=== PATIENT | female | born 1970 | race Caucasian/White ===

== ENCOUNTER 2017-07-31 19:27 | Emergency (ER) | payer BC ==
[~2017-07-31] VITALS: Ht 172.7 cm; Wt 138.8 kg
[~2017-07-31 19:27] MED LIST: ADVAIR 100/501 DISK IH; ADVAIR 500/501 DISK IH; ALBUTEROL INHALER; ALBUTEROL SULF8.5 GM IH; AMOXICILLIN875 MG PO; CIPRO500 MG PO; KEFLEX500 MG PO; LEXAPRO10 MG PO; LORTAB 5-325 M1 EACH PO; Levaquin PO; MOBIC7.5 MG PO; MOTRIN600 MG PO; NAPROSYN500 MG PO; OMEPRAZOLE20 MG PO; PERCOCET 5/31 TABLET PO; PREDNISONE20 MG PO; PROVENTIL HFA6.7 GM IH; TESSALON PERLE100 MG PO; ULTRAM50 MG PO; VENTOLIN17 GM IH; ZITHROMAX Z-PA250 MG PO; ZOFRAN4 MG PO; ZYRTEC-D1 TABLE1 PO
[2017-07-31 20:39] LABS: HEMATOCRIT 40.2 % (36.0-46.0); HEMOGLOBIN 13.2 G/DL (11.9-15.5); MCH 29.6 PG (29.0-34.0); MCHC 32.8 G/DL (30.0-36.0); MCV 90.1 FL (83-99); PLATELET COUNT 272 K/uL (156-360); RBC DIS.WIDTH-CV 13.9 % (11.8-14.6); RBC DIS.WIDTH-SD 45.7 % (39-53); RED BLOOD COUNT 4.46 M/uL (3.80-5.20); WHITE BLOOD COUNT 8.2 K/uL (4.1-10.2)
[2017-07-31 20:49] LABS: CHLORIDE 104 mEq/L (99-109); POTASSIUM 4.5 mEq/L (3.7-5.4); SODIUM 136 mEq/L (136-147)
[2017-07-31 20:51] LABS: GLUCOSE 102 mg/dL (70-99)
[2017-07-31 20:54] LABS: CREATININE 1.3 mg/dL (0.6-1.3); GFR ESTIMATE (CALCULATED) 47 mL/min/
[2017-07-31 20:55] LABS: UREA NITROGEN (BUN) 16 mg/dL (9-23)
[2017-07-31 21:00] LABS: TROP-I INTERPRETATION NEGATIVE; TROPONIN-I < 0.01 ng/mL (0.0-0.30)
[2017-08-01 01:27] VITALS: BP 116/78
[2017-08-01] MEDS ORDERED: TAMIFLU75 MG PO (01:30)
[2017-08-01] MEDS ORDERED: PREDNISONE20 MG PO (01:30)
[2017-08-01] MEDS ORDERED: MOTRIN800 MG PO (01:30)
[2017-08-01] MEDS ORDERED: ZITHROMAX250 MG PO (01:32)
== END 2017-08-01 01:42 | disposition home or self-care (01) ==
LOC: EME 19:27
DX: J11.1 Influenza due to unidentified influenza virus with other respiratory manifestations (principal); J45.901 Unspecified asthma with (acute) exacerbation; F41.9 Anxiety disorder, unspecified; F32.9 Major depressive disorder, single episode, unspecified; Z90.49 Acquired absence of other specified parts of digestive tract
CPT/HCPCS: 71020; 80048; 84484; 85027; 93005; 94640; 99281; 99284; J7512

== ENCOUNTER 2017-09-17 18:29 | Emergency (ER) | payer BC ==
[~2017-09-17] VITALS: Ht 172.7 cm; Wt 135.4 kg
[~2017-09-17 18:29] MED LIST changes: +MOTRIN800 MG PO; +TAMIFLU75 MG PO; +ZITHROMAX250 MG PO
[2017-09-17 19:22] LABS: HEMATOCRIT 40.3 % (36.0-46.0); HEMOGLOBIN 13.2 G/DL (11.9-15.5); MCH 29.7 PG (29.0-34.0); MCHC 32.8 G/DL (30.0-36.0); MCV 90.8 FL (83-99); PLATELET COUNT 329 K/uL (156-360); RBC DIS.WIDTH-CV 13.4 % (11.8-14.6); RBC DIS.WIDTH-SD 44.6 % (39-53); RED BLOOD COUNT 4.44 M/uL (3.80-5.20); WHITE BLOOD COUNT 7.4 K/uL (4.1-10.2)
[2017-09-17 19:31] LABS: ALBUMIN 4.3 g/dL (3.2-4.8); CHLORIDE 106 mEq/L (99-109); POTASSIUM 4.3 mEq/L (3.7-5.4); SODIUM 140 mEq/L (136-147)
[2017-09-17 19:33] LABS: GLUCOSE 96 mg/dL (70-99); TOTAL PROTEIN 7.5 g/dL (6.4-8.3)
[2017-09-17 19:35] LABS: TOTAL BILIRUBIN 1.7 mg/dL (0.0-1.0)
[2017-09-17 19:37] LABS: ALKALINE PHOSPHATASE 100 IU/L (3-129); CREATININE 1.2 mg/dL (0.6-1.3); GFR ESTIMATE (CALCULATED) 51 mL/min/
[2017-09-17 19:38] LABS: UREA NITROGEN (BUN) 17 mg/dL (9-23)
[2017-09-17 19:40] LABS: ALT (GPT) 11 IU/L (3-49); AST (GOT) 17 IU/L (2-34)
[2017-09-17 19:48] LABS: QUANTITATIVE HCG < 4.0 MIU/ML
[2017-09-17 19:56] LABS: APPEARANCE SL.HAZY ((CLEAR)); BILIRUBIN NEGATIVE; BLOOD NEGATIVE; COLOR YELLOW ((YELLOW)); GLUCOSE (STRIP) NEGATIVE; KETONES NEGATIVE; LEUKOCYTES NEGATIVE; NITRITE NEGATIVE; PROTEIN (STRIP) 30; SPECIFIC GRAVITY 1.029 (1.000-1.030); UROBILINOGEN 0.2 MG/DL (0.2-1.0)
[2017-09-17 20:01] LABS: BACTERIA NONE SEEN /HPF; EPITHELIAL CELLS 1+ /HPF; MUCUS TRACE /LPF; RED BLOOD CELLS 0-5 /HPF (0-5); UCUL ADDED? NO; WHITE BLOOD CELLS 0-5 /HPF (0-5)
[2017-09-17 22:50] LABS: DIRECT BILIRUBIN 0.5 mg/dL (0.0-0.3)
[2017-09-17 22:51] LABS: LIPASE 27 U/L (1.0-51.0)
[2017-09-17] MEDS ORDERED: REGLAN10 MG PO (23:29)
[2017-09-17] MEDS ORDERED: BENTYL20 MG PO (23:29)
[2017-09-17] MEDS ORDERED: ZANTAC300 MG PO (23:31)
[2017-09-17 23:46] VITALS: BP 128/82
== END 2017-09-17 23:47 | disposition home or self-care (01) ==
LOC: EME 18:29 → EXP 18:29
DX: R10.10 Upper abdominal pain, unspecified (principal); R68.81 Early satiety; R11.0 Nausea; K44.9 Diaphragmatic hernia without obstruction or gangrene; Z98.84 Bariatric surgery status; Z90.49 Acquired absence of other specified parts of digestive tract; Z90.5 Acquired absence of kidney; Z98.51 Tubal ligation status; J45.909 Unspecified asthma, uncomplicated
CPT/HCPCS: 74176; 80053; 81003; 82248; 83690; 84702; 85027; 93005; 99281; 99284; J0500

== ENCOUNTER 2017-12-17 15:41 | Emergency (ER) | payer OTHER, BC ==
[~2017-12-17] VITALS: Ht 172.7 cm; Wt 81.8 kg
[~2017-12-17 15:41] MED LIST changes: +BENTYL20 MG PO; +REGLAN10 MG PO; +ZANTAC300 MG PO
[2017-12-17] MEDS ORDERED: FLEXERIL10 MG PO (17:20)
[2017-12-17] MEDS ORDERED: NAPROSYN500 MG PO (17:20)
[2017-12-17 17:43] VITALS: BP 121/77
== END 2017-12-17 17:44 | disposition home or self-care (01) ==
LOC: EME 15:41
DX: M62.838 Other muscle spasm (principal); V49.40XA Driver injured in collision with unspecified motor vehicles in traffic accident, initial encounter; Y92.410 Unspecified street and highway as the place of occurrence of the external cause; J45.909 Unspecified asthma, uncomplicated; F41.9 Anxiety disorder, unspecified; F32.9 Major depressive disorder, single episode, unspecified; F31.9 Bipolar disorder, unspecified; Z90.49 Acquired absence of other specified parts of digestive tract; Z90.5 Acquired absence of kidney; Z98.84 Bariatric surgery status
CPT/HCPCS: 72040; 73030; 99281; 99283

== ENCOUNTER 2018-02-22 22:39 | Emergency (ER) | payer BC ==
[~2018-02-22] VITALS: Ht 172.7 cm; Wt 139.2 kg
[~2018-02-22 22:39] MED LIST changes: +FLEXERIL10 MG PO
[2018-02-22 23:23] LABS: HEMATOCRIT 38.9 % (36.0-46.0); HEMOGLOBIN 12.7 G/DL (11.9-15.5); MCH 29.3 PG (29.0-34.0); MCHC 32.6 G/DL (30.0-36.0); MCV 89.8 FL (83-99); PLATELET COUNT 319 K/uL (156-360); RBC DIS.WIDTH-CV 14.5 % (11.8-14.6); RBC DIS.WIDTH-SD 47.9 % (39-53); RED BLOOD COUNT 4.33 M/uL (3.80-5.20); WHITE BLOOD COUNT 7.9 K/uL (4.1-10.2)
[2018-02-22 23:39] LABS: CHLORIDE 107 mEq/L (99-109); POTASSIUM 4.1 mEq/L (3.7-5.4); SODIUM 141 mEq/L (136-147)
[2018-02-22 23:41] LABS: GLUCOSE 101 mg/dL (70-99)
[2018-02-22 23:45] LABS: CREATININE 1.3 mg/dL (0.6-1.3); GFR ESTIMATE (CALCULATED) 47 mL/min/
[2018-02-22 23:46] LABS: UREA NITROGEN (BUN) 21 mg/dL (9-23)
[2018-02-23] MEDS ORDERED: PREDNISONE20 MG PO (01:53)
[2018-02-23 02:05] VITALS: BP 110/82
== END 2018-02-23 02:05 | disposition home or self-care (01) ==
LOC: EME 22:39
DX: J45.901 Unspecified asthma with (acute) exacerbation (principal); F31.9 Bipolar disorder, unspecified; F32.9 Major depressive disorder, single episode, unspecified; F41.9 Anxiety disorder, unspecified; Z90.49 Acquired absence of other specified parts of digestive tract; Z90.5 Acquired absence of kidney; Z98.84 Bariatric surgery status
CPT/HCPCS: 71046; 80048; 85027; 94640; 99281; 99284; J2930